=== PATIENT | female | born 1995 | race Caucasian/White ===

== ENCOUNTER 2022-10-31 00:03 | Emergency (ER) | payer SELFPAY ==
[~2022-10-31] VITALS: Ht 165.1 cm; Wt 83.0 kg
[2022-10-31 00:10] VITALS: BP 135/79; PULSE 98; RESP 20; TEMP 98.5; O2SAT 100
== END 2022-10-31 00:25 | disposition left against medical advice (07) ==
LOC: ER 00:03
DX: Z53.21 Procedure and treatment not carried out due to patient leaving prior to being seen by health care provider (principal)
CPT/HCPCS: 99281